=== PATIENT | female | born 1995 ===

== ENCOUNTER 2019-12-17 15:49 | Emergency (ER) | payer SELFPAY ==
[2019-12-17] MEDS ORDERED: HYDROcodone/Acetaminophen 5/325 mg Tablet ONE (16:16)
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
== END 2019-12-17 18:15 | disposition home or self-care (01) ==
LOC: ERS 15:49
DX: S52.572A Other intraarticular fracture of lower end of left radius, initial encounter for closed fracture (principal); V89.2XXA Person injured in unspecified motor-vehicle accident, traffic, initial encounter
CPT/HCPCS: 29125